=== PATIENT | male | born 1995 | race Caucasian/White ===

== ENCOUNTER 2018-05-19 12:48 | Emergency (ER) | payer OTHER, SELFPAY ==
[2018-05-19 12:55] VITALS: BP 130/91; PULSE 108; RESP 16; TEMP 37.3; O2SAT 97
--- NOTE | 2018-05-19 13:17 | ED.GENADUL_ITS ---
Discharge Plan Disposition Patient Disposition: HOME Condition: Improving Discharge Details Chief Complaint: Orthopedic Clinical Impression: Anterior dislocation of left shoulder Primary Care Provider: None,None ED Provider: Darin Garsia Home Meds and New Rx's Prescriptions: No Action No Known Home Meds RF: 0 Discharge Instructions Additional Instructions: 1. Drink plenty of fluids. 2. Continue all medications as prescribed. 3. Acetaminophen 1000mg every 4 hours (up to 5 time a day) and/or ibuprofen 600mg every 6 hours as needed for fever or pain. 4. Ice sore areas frequently. 5. Wear shoulder sling for comfort. Do frequent hanging arm rotations. 6. Follow?up with an orthopedic doctor/physical therapy after returning home. Return to the Emergency Department (ED) if your condition worsens, does not improve as expected, or for ANY other concerns. Specifically, return if you have new or uncontrolled pain, worsening fever, difficulty breathing, vomiting, or are unable to drink fluids. Discharge Data Discharge Date/Time-TO BE ENTERED AT DEPARTURE: 05/19/18 13:28 Medical Decision Making Presents with an obvious painful left shoulder deformity sustained while snowboarding. Exam consistent with an anterior shoulder dislocation. Patient denies other significant injury and has no clinical evidence of injury. Shoulder reduced medially at the bedside using the Connolly technique. Postreduction evaluation significant for full range of motion and normal neurovascular exam. Postreduction bedside ultrasound confirms humeral head and glenoid with no evidence of bony injury. Mr. Duke was placed in a sling and discharged with plan for outpatient orthopedic follow-up after returning home. Discharged with a plan for OTC analgesia, ice, and follow-up as needed. Given usual and customary return instructions prior to discharge. Imaging Data Radiologic Study: Attestation: I personally reviewed and interpreted this imaging study as follows: Imaging: Ultrasound (Bedside MSK) My impression: Limited MSK Bedside Ultrasound. Findings include humeral head located in the glenoid and normal anatomical. No obvious humeral head or neck bony injury/defromtiy. Images obtained, reviewed, and interpreted independently by myself. Images saved on ultrasound system for review. HPI General Date/Time Provider Initiated Documentation: 05/19/18 13:07 . Limitations to Documentation: no limitations . Information obtained by: patient . HPI Narrative: Deangelo is a 22-year-old [place] presents with acute left shoulder pain from injury sustained while snowboarding. Has a previous history of rotator cuff injuries but denies previous shoulder fracture or dislocation. Since the event he has been unable to externally rotate or AB duct his shoulder without severe pain. Denies other significant injury. This includes no significant head pain, neck pain, back pain, or other extremity injuries. He has no chest wall injury, dyspnea, or abdominal pain. Related Data Home Medications Medication Instructions Recorded Confirmed Unknown [No Known Home Meds] 11/06/16 05/19/18 Allergies Allergy/AdvReac Type Severity Reaction Status Date / Time No Known Allergies Allergy Unverified 05/19/18 12:56 General Stated Complaint: Orthopedic SHIRA: 3 Review of Systems Review of Systems All systems reviewed & are unremarkable except as noted in HPI and below Constitutional Denies frequent falls and Denies weakness Eyes Denies blurry vision ENT Denies neck pain Cardiovascular Denies palpitations and Denies dyspnea Respiratory Denies dyspnea Gastrointestinal Denies abdominal pain Genitourinary Denies flank pain Musculoskeletal Reports deformity (Left shoulder with associated pain and restricted motion), Denies neck pain and Denies tingling Integumentary/Breasts Denies rash and Denies wounds Neurologic Denies confusion, Denies frequent falls, Denies tingling, Denies paresthesias and Denies weakness Psychiatric Denies confusion Endocrine Denies palpitations Hematologic/Lymphatic Denies as per HPI and Denies easy bleeding PFSH Social History Smoking/Tobacco Use Status: Current-Occasional Course Vital Signs Temperature 99.1 F 05/19/18 12:55 Pulse 108 H 05/19/18 12:55 Respiratory Rate 16 05/19/18 12:55 Blood Pressure 130/91 H 05/19/18 12:55 Pulse Oximetry 97 05/19/18 12:55 Temperature 99.1 F 05/19/18 12:55 Pulse 108 H 05/19/18 12:55 Respiratory Rate 16 05/19/18 12:55 Respiratory Effort Non-Labored 05/19/18 12:57 Blood Pressure 130/91 H 05/19/18 12:55 Blood Pressure Position Sitting 05/19/18 12:55 Pulse Oximetry 97 05/19/18 12:55 Oxygen Delivery Method Room Air 05/19/18 12:55 Oxygen Flow Rate 0 05/19/18 12:55 Pain Level 10 05/19/18 12:55 Procedures Orthopedic Joint Reduction Joint #1: Time Out Performed: Yes Side: left Joint Reduction Location: shoulder Analgesia: none Shoulder Technique Used (if applicable): Cathleen Post-reduction neuro exam: intact Post-reduction vascular: intact Post Reduction X-Ray Obtained: Yes (K ultrasound) Post Reduction X-Ray Results: reduced Splint Applied: No (Placed in a sling) Patient Tolerated Procedure: well
[2018-05-19 13:28] VITALS: PULSE 103; O2SAT 95
== END 2018-05-19 13:28 | disposition home or self-care (01) ==
PROVIDERS: Emergency Provider Emergency Medicine
DX: S43.015A Anterior dislocation of left humerus, initial encounter (principal); V00.311A Fall from snowboard, initial encounter
CPT/HCPCS: 99283; 99282; L3650